=== PATIENT | male | born 1970 | race Caucasian/White ===

== ENCOUNTER 2017-10-14 13:59 | Observation (INO) | payer BC ==
[2017-10-14 14:54] LABS: VBG BASE EXCESS 3.3 (-2.0-2.0); VBG CARBOXYHEMOGLOBIN 10.6 % T HGB (0.0-6.9); VBG HCO3- 28.5 meq/L (22-28); VBG HEMOGLOBIN 16.5; VBG O2 SATURATION 78.5 (95-100); VBG pH 7.42 (7.32-7.42)
--- NOTE | 2017-10-14 14:56 | ERPHSYRPT ---
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 He was lying on his right elbow for a few minutes. He then got up, could not move his right hand. He had no specific injury. He had headache. The weakness and tingling in the right arm and hand persists. No hx of this in the past. It initially felt like it went to sleep but never got better. No chest or back pain. No abd pain. Hand feels locked up. Timing/Duration: today (1PM) Severity: moderate Baseline/Normal Cognition: alert oriented x 3 Current Cognition: alert oriented x 3 Allergies/Adverse Reactions: No Known Drug Allergies Allergy (Verified 10/14/17 14:45) Hx Tetanus, Diphtheria Vaccination/Date Given: No Hx Influenza Vaccination/Date Given: No Hx Pneumococcal Vaccination/Date Given: No Immunizations Up to Date: Yes - Review of Systems Constitutional: No Fever, No Chills Eyes: No Vision Changes Ears, Nose, & Throat: No Symptoms Respiratory: No Symptoms Cardiac: No Chest Pain Abdominal/Gastrointestinal: No Abdominal Pain, No Nausea, No Vomiting, No Diarrhea Musculoskeletal: No Back Pain, No Neck Pain, No Injury Skin: No Rash Neurological: Focal Weakness (right hand), Headache, Parasthesia (right arm) All Other Systems: Reviewed and Negative - Past Medical History Pertinent Past Medical History: No - Past Surgical History Past Surgical History: Yes Neuro Surgical History: No Pertinent History Cardiac: No Pertinent History Respiratory: No Pertinent History Gastrointestinal: No Pertinent History Genitourinary: No Pertinent History Musculoskeletal: Orthopedic Surgery Male Surgical History: No Pertinent History Other Surgical History: knee , arm - Social History Smoking Status: Current every day smoker How long have you smoked: years Exposure to second hand smoke: Yes Drug Use: none Patient Lives Alone: No (works for [employer]) Significant Family History: no pertinent family hx - Nursing Vital Signs Nursing Vital Signs: Initial Vital Signs Pulse Rate 88 10/14/17 14:35 Respiratory Rate 16 10/14/17 14:35 Blood Pressure 146/88 10/14/17 14:35 O2 Sat by Pulse Oximetry 97 10/14/17 14:35 Pain Scale Pain Intensity 0 - Cade Coma Scale Best Eye Response (Cade): (4) open spontaneously Best Verbal Response (Buhl): (5) oriented Best Motor Response (Buhl): (6) obeys commands Cade Total: 15 - Physical Exam General Appearance: alert Eye Exam: bilateral eye: PERRL, EOMI Ears, Nose, Throat Exam: normal ENT inspection, moist mucous membranes Neck Exam: normal inspection, non-tender, supple Respiratory: normal breath sounds, lungs clear Cardiovascular: regular rate/rhythm, No murmur Rectal Exam: deferred Back Exam: normal inspection, No CVA tenderness, No vertebral tenderness Mental Status: alert, oriented x 3, cooperative etl lead Exam: normal hearing, normal speech, PERRL Coordination/Gait: normal gait, normal cerebellar function Motor/Sensory: no pronator drift Skin Exam: warm, dry, No rash SpO2 Interpretation: normal SpO2: 97 Oxygen Delivery: Room Air Comments: Left arm, both legs are strong with normal sensation. Face symmetric. The right hand is held in volar. Skin intact. He reports decreased sensation in stocking glove fashion from the elbow down. He has good strength in the right shoulder girdle and elbow area. He has weakness of right wrist dorsiflexion. - Course Nursing assessment & vital signs reviewed: Yes EKG Interpreted by Me: RATE (90), Sinus Rhythm, NORMAL AXIS, NORMAL QRS, NORMAL ST-T - Radiology Exams cxr X-ray Interpretation: Teleradiologist Report (new mild bibasilar infiltrates vs atelectasis.) - CT Exams head CT Interpretation: Tele-radiologist Report (stable normal CT head. Again partial opacification of mastoid air cells, left greater than right, presumed inflammatory.) Ordered Tests: Active Orders 24 hr Category Date Time Status Head Of [employer] STAT Care 10/14/17 14:44 Active Clean Catch Urine Specimen STAT Care 10/14/17 14:43 Active EKG-ER Only STAT Care 10/14/17 14:43 Active IV Insertion STAT Care 10/14/17 14:43 Active NPO (ED) STAT Care 10/14/17 14:43 Active Oxygen-ED Only NON-REBREATHER 100% Care 10/14/17 14:57 Active Pulse Oximetry (ED) STAT Care 10/14/17 14:43 Active Consult Neurology STAT Cons 10/14/17 14:45 Active CHEST 1 VIEW (PORTABLE) Stat Exams 10/14/17 14:[address] ANGIOGRAPHY NECK [CT] Stat Exams 10/14/17 16:11 Taken CTA HEAD W AND/OR WO CONTRAST [CT] Stat Exams 10/14/17 16:10 Taken HEAD WITHOUT CONTRAST [CT] Stat Exams 10/14/17 14:44 Completed CBC W DIFF Stat Lab 10/14/17 14:52 Completed CMP Stat Lab 10/14/17 14:52 Completed ETHYL ALCOHOL Stat Lab 10/14/17 14:52 Completed MAG [MAGNESIUM] Stat Lab 10/14/17 14:52 Completed PROTIME WITH INR Stat Lab 10/14/17 14:52 Completed PTT Stat Lab 10/14/17 14:52 Completed UA W/RFX UR CULTURE Stat Lab 10/14/17 16:55 Completed Urine Triage Profile Stat Lab 10/14/17 16:55 Completed VENOUS BLOOD GAS Stat Lab 10/14/17 18:12 Ordered VENOUS BLOOD GAS Urgent Lab 10/14/17 14:43 Completed Medication Summary Discontinued Medications Generic Name Dose Route Start Last Admin Trade Name Freq PRN Reason Stop Dose Admin Aspirin 325 mg 10/14/17 18:11 Ecotrin 325 Mg PO 10/14/17 18:12 STAT ONE Famotidine 20 mg 10/14/17 16:18 10/14/17 16:51 Pepcid 20 Mg Vial IV 10/14/17 16:19 20 mg STAT ONE Administration Famotidine Confirm 10/14/17 16:49 Pepcid 20 Mg Vial Administered 10/14/17 16:50 Dose 20 mg IV .STK-MED ONE Lorazepam 1 mg 10/14/17 16:18 10/14/17 16:51 Ativan 2 Mg/1 Ml Vial IV 10/14/17 16:19 1 mg STAT ONE Administration Lorazepam Confirm 10/14/17 16:49 Ativan 2 Mg/1 Ml Vial Administered 10/14/17 16:50 Dose 2 mg .ROUTE .STK-MED ONE Lorazepam 1 mg 10/14/17 18:11 Ativan 2 Mg/1 Ml Vial IV 10/14/17 18:12 STAT ONE Lorazepam 2 mg 10/14/17 18:15 Ativan 2 Mg/1 Ml Vial IV 10/14/17 18:16 STAT ONE Thiamine HCl 100 mg 10/14/17 18:11 Thiamine 200 Mg/2 Ml IM 10/14/17 18:12 STAT ONE Lab/Rad Data: Laboratory Result Diagrams 10/14/17 14:52 10/14/17 14:52 Laboratory Results 10/14/17 10/14/17 10/14/17 Range/Units 16:55 16:55 14:52 WBC (4.0-10.5) K/mm3 RBC (4.1-5.6) M/mm3 Hgb (12.5-18.0) gm/dl Hct (42-50) % MCV (78-100) fl MCH (26-32) pg MCHC (32-36) g/dl RDW (11.5-14.0) % Plt Count (150-450) K/mm3 MPV (6-9.5) fl Gran % (36.0-66.0) % Lymphocytes % (24.0-44.0) % Monocytes % (0.0-12.0) % Eosinophils % (0.00-5.0) % Basophils % (0.0-0.4) % Basophils # (0-0.4) INR (0.8-3.0) APTT (24.1-36.1) SECONDS VBG pH (7.32-7.42) VBG pCO2 at Pat Temp (42-55) mm/Hg VBG pO2 at Pat Temp (25-40) mm/Hg VBG HCO3 (22-28) meq/L VBG O2 Sat (Clover) (95-100) VBG Base Excess (-2.0-2.0) VBG Hemoglobin VBG Carboxyhemoglobin (0.0-6.9) % T HGB POC Potassium (3.5-5.1) Sodium (136-145) mEq/L Potassium (3.5-5.1) mEq/L Chloride (98-107) mEq/L Carbon Dioxide (21-32) mEq/L Anion Gap (5-15) MEQ/L BUN (9-20) mg/dL Creatinine (0.55-1.30) mg/dl Estimated GFR ML/MIN Glucose (70-110) MG/DL Calcium (8.5-10.1) mg/dL Magnesium (1.8-2.4) mg/dL Total Bilirubin (0.2-1.0) mg/dL AST (15-37) U/L ALT (12-78) U/L Alkaline Phosphatase (46-116) U/L Serum Total Protein (6.4-8.2) gm/dL Albumin (3.4-5.0) g/dL Ur Collection Type CCMS Urine Color YELLOW (YELLOW) Urine Appearance CLEAR (CLEAR) Urine pH 6.0 (5-6) Ur Specific [place] 1.015 (1.005-1.025) Urine Protein NEGATIVE (Negative) Urine Ketones NEGATIVE (NEGATIVE) Urine Blood NEGATIVE (0-5) Sulaiman/ul Urine Nitrite NEGATIVE (NEGATIVE) Urine Bilirubin NEGATIVE (NEGATIVE) Urine Urobilinogen NORMAL (0-1) mg/dL Ur Leukocyte Esterase NEGATIVE (NEGATIVE) Urine Culture Reflexed NO (NO) Urine Glucose NEGATIVE (NEGATIVE) mg/dL Urine Opiates Level NEG. (NEGATIVE) Ur Methadone NEG. (NEGATIVE) Urine Barbiturates NEG. (NEGATIVE) Ur Phencyclidine (PCP) NEG. (NEGATIVE) Urine Amphetamine NEG. (NEGATIVE) U Benzodiazepine Level NEG. (NEGATIVE) Urine Cocaine NEG. (NEGATIVE) Urine Marijuana (THC) NEG. (NEGATIVE) Ethyl Alcohol < 0.010 (0.00-0.01) % Specimen Received 10-14-17 1705 10/14/17 10/14/17 10/14/17 Range/Units 14:52 14:52 14:52 WBC (4.0-10.5) K/mm3 RBC (4.1-5.6) M/mm3 Hgb (12.5-18.0) gm/dl Hct (42-50) % MCV (78-100) fl MCH (26-32) pg MCHC (32-36) g/dl RDW (11.5-14.0) % Plt Count (150-450) K/mm3 MPV (6-9.5) fl Gran % (36.0-66.0) % Lymphocytes % (24.0-44.0) % Monocytes % (0.0-12.0) % Eosinophils % (0.00-5.0) % Basophils % (0.0-0.4) % Basophils # (0-0.4) INR 1.02 (0.8-3.0) APTT 30.8 (24.1-36.1) SECONDS VBG pH (7.32-7.42) VBG pCO2 at Pat Temp (42-55) mm/Hg VBG pO2 at Pat Temp (25-40) mm/Hg VBG HCO3 (22-28) meq/L VBG O2 Sat (Clover) (95-100) VBG Base Excess (-2.0-2.0) VBG Hemoglobin VBG Carboxyhemoglobin (0.0-6.9) % T HGB POC Potassium (3.5-5.1) Sodium 139 (136-145) mEq/L Potassium 4.0 (3.5-5.1) mEq/L Chloride 103 (98-107) mEq/L Carbon Dioxide 28.8 (21-32) mEq/L Anion Gap 11.1 (5-15) MEQ/L BUN 15 (9-20) mg/dL Creatinine 1.31 H (0.55-1.30) mg/dl Estimated GFR > 60 ML/MIN Glucose 149 H (70-110) MG/DL Calcium 8.9 (8.5-10.1) mg/dL Magnesium 2.4 (1.8-2.4) mg/dL Total Bilirubin 0.40 (0.2-1.0) mg/dL AST 58 H (15-37) U/L ALT 132 H (12-78) U/L Alkaline Phosphatase 98 (46-116) U/L Serum Total Protein 7.7 (6.4-8.2) gm/dL Albumin 3.9 (3.4-5.0) g/dL Ur Collection Type Urine Color (YELLOW) Urine Appearance (CLEAR) Urine pH (5-6) Ur Specific [place] (1.005-1.025) Urine Protein (Negative) Urine Ketones (NEGATIVE) Urine Blood (0-5) Sulaiman/ul Urine Nitrite (NEGATIVE) Urine Bilirubin (NEGATIVE) Urine Urobilinogen (0-1) mg/dL Ur Leukocyte Esterase (NEGATIVE) Urine Culture Reflexed (NO) Urine Glucose (NEGATIVE) mg/dL Urine Opiates Level (NEGATIVE) Ur Methadone (NEGATIVE) Urine Barbiturates (NEGATIVE) Ur Phencyclidine (PCP) (NEGATIVE) Urine Amphetamine (NEGATIVE) U Benzodiazepine Level (NEGATIVE) Urine Cocaine (NEGATIVE) Urine Marijuana (THC) (NEGATIVE) Ethyl Alcohol (0.00-0.01) % Specimen Received 10/14/17 10/14/17 Range/Units 14:52 14:43 WBC 9.7 (4.0-10.5) K/mm3 RBC 4.38 (4.1-5.6) M/mm3 Hgb 15.8 (12.5-18.0) gm/dl Hct 43.9 (42-50) % MCV 100.2 H (78-100) fl MCH 36.1 H (26-32) pg MCHC 36.0 (32-36) g/dl RDW 12.5 (11.5-14.0) % Plt Count 218 (150-450) K/mm3 MPV 9.5 (6-9.5) fl Gran % 68.3 H (36.0-66.0) % Lymphocytes % 20.7 L (24.0-44.0) % Monocytes % 9.2 (0.0-12.0) % Eosinophils % 1.7 (0.00-5.0) % Basophils % 0.1 (0.0-0.4) % Basophils # 0.01 (0-0.4) INR (0.8-3.0) APTT (24.1-36.1) SECONDS VBG pH 7.42 (7.32-7.42) VBG pCO2 at Pat Temp 44 (42-55) mm/Hg VBG pO2 at Pat Temp 34 (25-40) mm/Hg VBG HCO3 28.5 H (22-28) meq/L VBG O2 Sat (Clover) 78.5 L (95-100) VBG Base Excess 3.3 H (-2.0-2.0) VBG Hemoglobin 16.5 VBG Carboxyhemoglobin 10.6 H* (0.0-6.9) % T HGB POC Potassium 4.0 (3.5-5.1) Sodium (136-145) mEq/L Potassium (3.5-5.1) mEq/L Chloride (98-107) mEq/L Carbon Dioxide (21-32) mEq/L Anion Gap (5-15) MEQ/L BUN (9-20) mg/dL Creatinine (0.55-1.30) mg/dl Estimated GFR ML/MIN Glucose (70-110) MG/DL Calcium (8.5-10.1) mg/dL Magnesium (1.8-2.4) mg/dL Total Bilirubin (0.2-1.0) mg/dL AST (15-37) U/L ALT (12-78) U/L Alkaline Phosphatase (46-116) U/L Serum Total Protein (6.4-8.2) gm/dL Albumin (3.4-5.0) g/dL Ur Collection Type Urine Color (YELLOW) Urine Appearance (CLEAR) Urine pH (5-6) Ur Specific [place] (1.005-1.025) Urine Protein (Negative) Urine Ketones (NEGATIVE) Urine Blood (0-5) Sulaiman/ul Urine Nitrite (NEGATIVE) Urine Bilirubin (NEGATIVE) Urine Urobilinogen (0-1) mg/dL Ur Leukocyte Esterase (NEGATIVE) Urine Culture Reflexed (NO) Urine Glucose (NEGATIVE) mg/dL Urine Opiates Level (NEGATIVE) Ur Methadone (NEGATIVE) Urine Barbiturates (NEGATIVE) Ur Phencyclidine (PCP) (NEGATIVE) Urine Amphetamine (NEGATIVE) U Benzodiazepine Level (NEGATIVE) Urine Cocaine (NEGATIVE) Urine Marijuana (THC) (NEGATIVE) Ethyl Alcohol (0.00-0.01) % Specimen Received - Progress Progress Note: 10/14/17 14:56 Symptom onset 1PM. Exam suggests neuropraxia from the right elbow. However, he has headache and is worried about stroke. Will get stat head CT and [facility] neurology consultation. CO 10.[address] on NRB oxygen. 10/14/17 15:58 He was evaluated by [facility] neurology Dr Espitia. He has some sensory changes in the right face, right arm, and right leg. Most weakness right hand. Dr Espitia advised TPA administration. Dr Espitia discussed risk and benefits to include improvement, better functional outcome, bleeding, , worsening. Pt is hesitant after long discussion regarding TPA. He is a chronic drinker of alcohol. He has had improvement in weakness of right hand although it is still present. He has had improvement in the sensory changes in the face and leg. Dr Espitia advised pt to consider TPA administration. Pt at this point said no. 10/14/17 16:16 Again discussed risk and benefits of TPA for stroke with pt and mother and father in room. He understands risks and benefits. He does not want to take the medication. He declines TPA for stroke. Parents understand as well. 10/14/17 16:19 Pt is left handed. He signed refusal for TPA. Will give ativan for anxiety. He is a heavy drinker of alcohol which might be playing some role as well. 10/14/17 17:51 CTA head/neck: Minimal calcification of origin left subclavian artery. O/W normal CTA neck and CTA nez perce of Ugart[place]. 10/14/17 18:[address] Hannon who will place in tele observation. Pt agrees. Will get MRI, echo, tele. Will give ativan to prevent alcohol withdrawal. He took oxygen off. Will recheck CO. Counseled pt/family regarding: lab results, diagnosis, need for follow-up, rad results, smoking cessation - Departure Time of Disposition: 18:17 Departure Disposition: Observation (Tele Dr Hannon) Clinical Impression: Non-hemorrhagic stroke, Chronic alcohol use, elevated carbon monoxide Condition: Fair Critical Care Time: Yes Critical Care Time(excluding separately billable procedures): 30-74 minutes Referrals: DASHA HANNON [Primary Care Provider] -
[2017-10-14 15:05] LABS: BASOPHIL % 0.1 % (0.0-0.4); Basophil (Absolute #) 0.01 (0-0.4); Eosinophil % 1.7 % (0.00-5.0); Eosinophil (Absolute #) 0.16 (0-0.5); Granulocyte Absolute (ANC) 6.62 (1.4-6.9); Granulocytes % 68.3 % (36.0-66.0); Hematocrit 43.9 % (42-50); Hemoglobin 15.8 gm/dl (12.5-18.0); Lymphocytes % 20.7 % (24.0-44.0); Mean Cell Volume 100.2 fl (78-100); Mean Corpuscular Hemoglobin 36.1 pg (26-32); Mean Platelet Volume 9.5 fl (6-9.5); Monocyte (Absolute #) 0.89 (0.0-1.3); Monocytes % 9.2 % (0.0-12.0); Platelet Count 218 K/mm3 (150-450); Red Blood Count 4.38 M/mm3 (4.1-5.6); Red Cell Distribution Width 12.5 % (11.5-14.0); White Blood Count 9.7 K/mm3 (4.0-10.5)
--- NOTE | 2017-10-14 15:06 | XRAY ---
Indication: Elevated blood pressure. Right hand numbness. Comparison: March 19, 2012. Single AP portable chest demonstrates new mild bibasilar infiltrates versus atelectasis. Remaining heart, lungs, and bony thorax normal.
--- NOTE | 2017-10-14 15:12 | XRAY ---
Indication: Right hand numbness. Multiple contiguous axial images obtained through the head without contrast. Comparison: March 19, 2012. Again normal appearing brain parenchyma, ventricles, and bony calvarium. Visualized paranasal sinuses are clear. There remains near complete opacification of the left mastoid air cells and partial opacification of the right mastoid air cells. Impression: 1. Stable normal CT head without contrast exam. 2. Again partial opacification of the mastoid air cells, left greater the right, presumed inflammatory. CTDI 70.00
[2017-10-14 15:21] LABS: INR 1.02 (0.8-3.0)
[2017-10-14 15:24] LABS: PTT 30.8 SECONDS (24.1-36.1)
[2017-10-14 15:40] LABS: ALBUMIN 3.9 g/dL (3.4-5.0); ALKALINE PHOSPHATASE 98 U/L (46-116); ANION GAP 11.1 MEQ/L (5-15); BLOOD UREA NITROGEN 15 mg/dL (9-20); CHLORIDE 103 mEq/L (98-107); Calcium 8.9 mg/dL (8.5-10.1); Carbon Dioxide 28.8 mEq/L (21-32); Creatinine 1 1.31 mg/dl (0.55-1.30); EST GLOMERULAR FILTRATION RATE > 60 ML/MIN; Glucose 149 MG/DL (70-110); SGOT/AST 58 U/L (15-37); SGPT/ALT 132 U/L (12-78); SODIUM 139 mEq/L (136-145); Total Protein 7.7 gm/dL (6.4-8.2)
[2017-10-14] MEDS ORDERED: Pepcid 20 MG VIAL IV ONE ×2 (16:18→16:49)
[2017-10-14] MEDS ORDERED: Ativan 2 MG/1 ML VIAL IV ONE ×3 (16:18→18:15)
[2017-10-14] MEDS ORDERED: Ativan 2 MG/1 ML VIAL ONE ×2 (16:49→18:18)
[2017-10-14 17:07] LABS: Appearance CLEAR (CLEAR); Bilirubin NEGATIVE (NEGATIVE); Blood NEGATIVE Ery/ul (0-5); Glucose NEGATIVE (NEGATIVE); Ketones NEGATIVE (NEGATIVE); Leukocyte Esterase NEGATIVE (NEGATIVE); Nitrite NEGATIVE (NEGATIVE); Protein,Urine Dip NEGATIVE (Negative); Specific Gravity 1.015 (1.005-1.025); Urobilinogen NORMAL mg/dL (0-1)
[2017-10-14 17:13] LABS: Amphetamine,Urine NEG. (NEGATIVE); Barbiturate,Urine NEG. (NEGATIVE); Benzodiazepine,Urine NEG. (NEGATIVE); Cocaine,Urine NEG. (NEGATIVE); Methadone,Urine NEG. (NEGATIVE); Opiate,Urine NEG. (NEGATIVE); PCP,Urine NEG. (NEGATIVE); THC,Urine NEG. (NEGATIVE)
[2017-10-14] MEDS ORDERED: Ecotrin 325 MG PO ONE (18:11)
[2017-10-14] MEDS ORDERED: THIAMINE 200 MG/2 ML IM ONE (18:11)
[2017-10-14] MEDS ORDERED: THIAMINE 200 MG/2 ML ONE (18:18)
[2017-10-14 18:30] LABS: VBG O2 SATURATION 81.6 (95-100); VBG POTASSIUM 4.5 (3.5-5.1); VBG pH 7.36 (7.32-7.42)
[2017-10-14] MEDS ORDERED: MAALOX ES 30 ML UNIT DOSE PO PRN (20:27)
[2017-10-14] MEDS ORDERED: TYLENOL 325 MG PO PRN (20:27)
[2017-10-14] MEDS ORDERED: Zofran 4 MG/2 ML VIAL IV PRN (20:27)
[2017-10-14] MEDS ORDERED: Senokot-S Tablet PO PRN (20:27)
[2017-10-14] MEDS ORDERED: MILK OF MAGNESIA 30 ML PO PRN (20:27)
[2017-10-14] MEDS ORDERED: Ativan 2 MG/1 ML VIAL IV PRN (21:30)
[2017-10-14] MEDS ORDERED: Sodium Chloride 0.9% 1000 ML 1,000 ML IV SCH (21:45)
[2017-10-14] MEDS ORDERED: ZOCOR 20MG PO SCH (22:00)
[2017-10-14] MEDS: Pepcid 20 MG PO SCH (22:29)
[2017-10-14 23:03] LABS: VBG BASE EXCESS 2.9 (-2.0-2.0); VBG CARBOXYHEMOGLOBIN 4.3 % T HGB (0.0-6.9); VBG HCO3- 27.9 meq/L (22-28); VBG HEMOGLOBIN 15.7; VBG O2 SATURATION 96.2 (95-100); VBG POTASSIUM 3.4 (3.5-5.1); VBG pH 7.42 (7.32-7.42)
[2017-10-15 06:33] LABS: Risk Ratio 5.5
[2017-10-15] MEDS ORDERED: TRANDATE 20 MG/5 ML SYRINGE IV PRN (07:19)
[2017-10-15] MEDS ORDERED: PROVENTIL COMMON CANISTER IH PRN (08:33)
--- NOTE | 2017-10-15 08:42 | XRAY ---
Indication: Headache and right arm numbness. Conventional contrast enhanced CTA head was performed using 80 cc Isovue 370 contrast. 2-dimensional sagittal and coronal reformatted images obtained. Additional 3-dimensional reformatted images obtained using a separate workstation. Comparison: None Distal internal carotid arteries are bilaterally symmetric without critical stenosis, obstruction, or AV malformation. Normal carotid terminus with normal branching A1 and M1 segments bilaterally. Visualized distal anterior and middle cerebral arteries are normal in CTA appearance. Anterior communicating and posterior communicating arteries not seen probably too small for resolution of exam. Examination of the posterior circulation demonstrates bilaterally patent distal vertebral arteries with the right slightly larger in size. Normal CTA appearance the basilar artery and tip with normal branching posterior cerebral and anterior inferior cerebellar arteries. Remaining whole brain is negative for abnormal enhancing intra-or extra-axial mass. Venous drainage unremarkable. Impression: Negative CTA [place] of [place]. CT DI 70.00
--- NOTE | 2017-10-15 08:43 | XRAY ---
Indication: Headache and right arm numbness. Conventional contrast enhanced CTA neck was performed using 80 cc Isovue 370 contrast. 2-dimensional sagittal and coronal reformatted images obtained. Additional 3-dimensional reformatted images obtained using a separate workstation. Comparison: None Visualized aortic arch is normal with normal branching right radiocephalic, left common carotid, and left subclavian arteries. Very minimal eccentric calcified plaquing seen at the origin of the left subclavian artery. No critical stenosis or obstruction. The left and right common carotid, carotid bulb, internal carotid, and external carotid arteries are normal in course and caliber without critical stenosis, obstruction, or AV malformation. Vertebral arteries are also normal in CTA appearance with the right slightly larger in size. Jugular veins are bilaterally unremarkable. Visualized noncontrasted soft tissues demonstrates scattered small centimeter/subcentimeter cervical lymph nodes bilaterally. Parotid and submandibular glands are bilaterally symmetric. Thyroid gland enhances homogeneously. Supra and infraglottic airway are widely patent. Visualized osseous structures including cervical spine unremarkable. Lung apices are clear. CT head and CTA head reported separately. Impression: Minimal calcified plaquing at the origin of the left subclavian artery. Remaining CTA neck is normal. CT DI 70.00
[2017-10-15] MEDS ORDERED: Augmentin 875-125 Tablet PO SCH (08:45)
[2017-10-15] MEDS ORDERED: Sodium Chloride 0.9% 10 ML FLUSH Syringe IV PRN (08:52)
[2017-10-15] MEDS: Pepcid 20 MG PO SCH (09:15)
[2017-10-15] MEDS ORDERED: ENOXAPARIN SODIUM SQ SCH (10:00)
[2017-10-15] MEDS ORDERED: VITAMIN B-1 100 MG PO SCH (10:00)
[2017-10-15] MEDS ORDERED: Ecotrin 325 MG PO SCH (10:00)
[2017-10-15] MEDS ORDERED: THERAGRAN MULTIVITAMIN PO SCH (10:00)
--- NOTE | 2017-10-15 10:01 | HP ---
HISTORY OF PRESENT ILLNESS: This is a 47 year-old who presented to the emergency department after experiencing some right arm and hand weakness and numbness. 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 He reports at first he was unable to even to take his hand out of claw-like position. He reports this happened at 1300 hours yesterday. He denied any weakness in his right leg. He reports that his strength is back but he still has some numb feeling on top of his right hand and top of his forearm. 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 He reports that he did have a headache yesterday that seemed to start after his arm problem. He reports he had some headaches on and off from sinus problems. 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 He reports there is carbon monoxide inside the scrubber. He reports that his headache is a little bit better. He denies any vision problems. He denies feeling jittery today. He does have a significant alcohol history as well and also he smokes cigarettes. REVIEW OF SYSTEMS: He denies any chest pain. He reports he has had some sinus pressure and a fever last weekend along with a cough that is worse at night. His fever was unmeasured. He denies abdominal pain. No nausea or vomiting. He reports increased urination and diarrhea this past weekend which was through Saturday he reported. PAST MEDICAL HISTORY: Sinus problems. PAST SURGICAL HISTORY: He reports having surgery on a knee and arm. MEDICATIONS: None. ALLERGIES: NKDA. SOCIAL HISTORY: History of alcohol abuse. FAMILY HISTORY: His girlfriend lives at home with him. He reports smoking one pack per day of cigarettes and wanting to try to quit. He reports drinking four to five drinks per day on most days of the week and his mother who is at the bedside reports he often binge-drinks as well. He denies any history of alcohol withdrawal. They report he was at [facility] two months ago and received a medication to help with withdrawal, Antabuse. PHYSICAL EXAMINATION: VITAL SIGNS: Temperature current 98.1F, temperature max 98.8F, heart rate 77 to 93, respiratory rate 16 to 20, blood pressure 108 to 138 over 66 to 85, weight 82.5 kg. Oxygen saturation 92 to 99%. GENERAL: The patient is lying in bed a cooperative pleasant man in no acute distress. His mother is at the bedside. NEURO: Cranial nerves II-XII are intact. Strength is 5/5 in all four extremities. On finger to nose he has a little bit of tremor. Normal heel to cruz. The tremors bilateral on the finger to nose. He can feel me touch his right hand but states that it feels different and the same with his right forearm. CVS: His heart has a regular rate and rhythm. No murmurs, gallops or rubs are appreciated. CHEST: Clear to auscultation at the bases. He has wheezes at the upper lung ferguson bilaterally and a cough with deep breath. ABDOMEN: Soft, nontender, nondistended with normal bowel sounds. EXTREMITIES: No clubbing, cyanosis or edema. SKIN: Warm, dry and intact. LABORATORY DATA AND TESTS: CBC was within normal limits on admission. CMP with AST 58, ALT 132. LDL 128. UA negative. Urine tox was negative. Ethanol alcohol level less than 0.010. Magnesium was normal. On admission his carboxyhemoglobin was 10.6 at 1443, repeat 9.0 at 1825 and 4.3 at 2302. He had head CT that was read as normal CT without contrast exam with partial opacification of the mastoid air cells, left greater than right. Chest x-ray was read as new mild bibasilar infiltrates versus atelectasis. Please see the radiologist dictation for both. Emergency room doctor reported he also had a CT angiogram but I do not have the report from the radiologist on that. The emergency room doctor gave a verbal report that this was read as normal. EKG normal sinus rhythm with no ST-T wave changes, heart rate 77 from this morning. ASSESSMENT AND PLAN: 1) NONHEMORRHAGIC STROKE: He had a cardiac echo today. He has been on telemetry without any events. MRI is ordered for today. He has been started on statin as well as aspirin. I will plan for him to follow up as an outpatient with neurologist. I recommended that the patient be off work the rest of the week. 2) CARBON MONOXIDE POISOINING: It may be related to his work environment. The patient was encouraged to wear any mask provided at work and to let his supervisors know about the high CO2 level. 3) TOBACCO ABUSE: The patient was counseled that he should quit smoking as it puts him at higher risk for further stroke. He is to think about if wants a medication prescribed for this. 4) ALCOHOL ABUSE: The patient was also counseled that he should quit using alcohol and also to write scripts for Antabuse and Librium. 5) SINUSITIS: Will start him on Augmentin twice a day for ten days. 6) WHEEZING: He probably has some underlying chronic obstructive pulmonary disease from his tobacco abuse. He was started on Albuterol inhaler 2 puffs every four hours as needed and ask respiratory therapy to see him. 7) DEEP VENOUS THROMBOSIS PROPHYLAXIS: He is on Lovenox 40 mg subcutaneously daily.
[2017-10-15 11:44] VITALS: BP 133/83; PULSE 78; O2SAT 95
--- NOTE | 2017-10-15 12:46 | XRAY ---
Indication: Right arm numbness. Possible stroke. Carbon monoxide poisoning. Sagittal, coronal, and axial MRI brain was performed without contrast using T1, T2, FLAIR, diffusion, and ADC sequences. Comparison: None Ventriculosulcal pattern appears symmetric. There are several small T2 signal intensities in the periventricular white matter bilaterally favoring degenerative micro-ischemia. No acute intracranial hemorrhage, abnormal extra-axial fluid collection, or mass effect. Diffusion images are negative for restricted signal. Basal ganglia unremarkable. Fourth ventricle is midline without hydrocephalus. 7/8 cranial nerve complex bilaterally symmetric. Normal flow void signal within the major intracerebral circulation. Normal-appearing craniocervical junction and sella turcica. Mild mucosal thickening of both ethmoid sinuses. There is fluid signal in both mastoid air cells, left greater than right. Impression: 1. Mild periventricular degenerative micro-ischemia. 2. No acute intracranial abnormalities or MRI features for carbon monoxide poisoning. 2. Incidental paranasal sinus disease and fluid signal in both mastoid air cells presumed inflammatory.
--- NOTE | 2017-10-15 13:04 | PCM.DCORD ---
- Discharge Discharge Date: 10/15/17 Disposition: Home, Self-Care Condition: Fair Prescriptions: New Albuterol Sulfate [Albuterol Sulfate Hfa] 2 puffs IH Q4H PRN #1 [id number] PRN Reason: Shortness Of Breath/Wheezing Disulfiram [Antabuse] 500 mg PO DAILY #10 tablet Atorvastatin Calcium 20 mg PO DAILY #30 tablet Amox Tr/Potass Clav. 875 mg [Augmentin 875-125 Tablet] 875 mg PO Q12H # 19 tablet Multivitamin [Daily Multiple Vitamin] 1 each PO DAILY #30 tablet Aspirin EC 325 mg [Ecotrin 325 MG] 325 mg PO DAILY #30 tablet.ec Chlordiazepoxide HCl 10 mg [Librium 10 MG] 10 mg PO TID PRN #30 capsule PRN Reason: Anxiety Bupropion HCl 150 mg Sr [Wellbutrin SR 150 MG] 150 mg PO UD #60 tablet.sa Instructions: Paresthesias (DC), Hand Numbness, Stroke Follow up with: [facility] [NON-STAFF PHY W/O PRIVILEGES] - 10/30/17 2:30 pm DASHA HANNON [Primary Care Provider] - 10/22/17 9:30 am Forms: Discharge Instructions, Patient Portal Information
[2017-10-15] MEDS ORDERED: Sodium Chloride 0.9% 10 ML FLUSH Syringe IV SCH (14:00)
--- NOTE | 2017-10-16 15:57 | ECHO ---
DATE OF PROCEDURE: 10/15/2017 CLINICAL INFORMATION: Carbon monoxide poisoning and possible stroke. The echocardiogram is technically difficult. The M-mode 2D, and Doppler echocardiogram including color flow Doppler shows some aneurysmal appearance to the interatrial septum. There is normal contractility of the left ventricle. The ejection fraction is calculated to be 70%. The left ventricle is normal in size with a dimension of 4.4 cm. There is no evidence of apical thrombus. The septal wall thickness is normal at 1.0 cm. The left ventricular posterior wall is borderline hypertrophied at 1.2 cm. The right ventricle is normal in size and function. The left atrium is borderline dilated with a dimension of 4.1 cm. The right atrium is mildly dilated. There is mild aortic regurgitation present. The mitral valve is unremarkable. There is mild tricuspid regurgitation. The pulmonic valve is not well visualized. The aortic root is 3.4 cm which is normal. There is no pericardial effusion. IMPRESSION: 1) NORMAL CONTRACTILITY OF THE LEFT VENTRICLE. NO EVIDENCE OF THROMBUS PRESENT. 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 2) THERE IS BORDERLINE HYPERTROPHY OF LEFT VENTRICLE POSTERIOR WALL. 3) THERE IS MILD TRICUSPID REGURGITATION. 4) THERE IS MILD AORTIC REGURGITATION. 5) THERE IS TRICUSPID VALVULAR CALCIFICATION. 6) THE ECHOCARDIOGRAM WAS TECHMICALLY DIFFICULT DUE TO LUNG INTERFERENCE.
== END 2017-10-15 13:52 | disposition home or self-care (01) ==
LOC: ED 13:59 → MED SURG 20:00
PROVIDERS: ADMIT Internal Medicine; ATTEND Internal Medicine
DX: I63.9 Cerebral infarction, unspecified (principal); T58.8X1A Toxic effect of carbon monoxide from other source, accidental (unintentional), initial encounter; Y92.69 Other specified industrial and construction area as the place of occurrence of the external cause; Z72.0 Tobacco use; F10.10 Alcohol abuse, uncomplicated; J32.9 Chronic sinusitis, unspecified; R06.2 Wheezing
CPT/HCPCS: 36000; 36415; 70450; 70496; 70498; 70551; 71045; 80053; 80061; 80307; 81002; 82805; 82962; 83036; 83721; 83735; 84484; 85025; 85610; 85730; 93005; 93041; 93268; 93306; 96372; 96374; 96375; 96376; 99291; G0378; G0481; J1650; J2060; Q3014; A9270-GY

== ENCOUNTER 2020-08-11 21:50 | Emergency (ER) | payer SELFPAY ==
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
[2020-08-11] MEDS ORDERED: Zithromax 250 MG TABLET PO ONE (22:39)
[2020-08-11] MEDS ORDERED: Zithromax 250 MG TABLET ONE (22:46)
[2020-08-11 22:50] VITALS: BP 121/84; PULSE 92; O2SAT 99
== END 2020-08-11 23:02 | disposition home or self-care (01) ==
LOC: ED 21:50
DX: Z02.89 Encounter for other administrative examinations (principal); J02.9 Acute pharyngitis, unspecified; J32.9 Chronic sinusitis, unspecified
CPT/HCPCS: 99283; U0003; A9270-GY

== ENCOUNTER 2020-10-28 23:11 | Emergency (ER) | payer SELFPAY ==
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
[2020-10-29 00:10] LABS: Amphetamine,Urine NEGATIVE (NEGATIVE); Barbiturate,Urine NEGATIVE (NEGATIVE); Benzodiazepine,Urine NEGATIVE (NEGATIVE); Cocaine,Urine NEGATIVE (NEGATIVE); Methadone,Urine NEGATIVE (NEGATIVE); Opiate,Urine NEGATIVE (NEGATIVE); PCP,Urine NEGATIVE (NEGATIVE); THC,Urine NEGATIVE (NEGATIVE)
[2020-10-29 02:15] VITALS: BP 120/66; PULSE 81; O2SAT 99
--- NOTE | 2020-10-29 07:36 | XRAY ---
Indication: Pain following fall. Comparison: None 3 view left shoulder demonstrates comminuted clavicle shaft fracture with bayonet apposition/alignment. No other bony, articular, or soft tissue abnormalities.
== END 2020-10-29 03:00 ==
LOC: ED 23:11
DX: Z02.89 Encounter for other administrative examinations (principal); M25.512 Pain in left shoulder; S42.002A Fracture of unspecified part of left clavicle, initial encounter for closed fracture; W18.30XS Fall on same level, unspecified, sequela; F10.10 Alcohol abuse, uncomplicated; F17.210 Nicotine dependence, cigarettes, uncomplicated
CPT/HCPCS: 36415; 73030; 80307; 99284; G0480

== ENCOUNTER 2022-03-13 11:35 | Emergency (ER) | payer OTHER ==
[2022-03-13] MEDS ORDERED: Sodium Chloride 0.9% 1000 ML 1,000 ML IV STA (11:50)
[2022-03-13] MEDS ORDERED: SUBLIMAZE 100 MCG/2 ML IV ONE (11:50)
[2022-03-13] MEDS ORDERED: solu-MEDROL IV ONE (11:53)
[2022-03-13] MEDS ORDERED: SUBLIMAZE 100 MCG/2 ML ONE (12:00)
[2022-03-13] MEDS ORDERED: solu-MEDROL ONE (12:01)
[2022-03-13] MEDS ORDERED: Sodium Chloride 0.9% 1000 ML 1,000 ML ONE (12:01)
--- NOTE | 2022-03-13 12:01 | ERPHSYRPT ---
- History of Present Illness Time Seen by Provider: 03/13/22 11:57 Source: patient Exam Limitations: no limitations Patient Subjective Stated Complaint: pt here for sore throat for 2 days now with a fever, states hard to eat and drink Triage Nursing Assessment: pt alert, resp easy, skin w/d/p, no drooling, no edema noted Physician History: Patient is a 51-year-old white male presents with a 2-day history of severe sore throat. He started with some swelling in his nodes and he complains of great difficulty swallowing he is in fact expectorating his saliva. He also complains of a severe headache multiple episodes of vomiting last vomiting last p.m. he has had chills and night sweats he had been [place] Patient also complains of some anterior chest pain wall tenderness has been present for a month Timing/Duration: day(s) (2) Severity: severe Modifying Factors: Improves With: nothing Associated Symptoms: nausea, vomiting, diaphoresis, chills Allergies/Adverse Reactions: No Known Drug Allergies Allergy (Verified 03/13/22 11:42) Home Medications: No Reportable Medications [No Reported Medications] 08/11/20 [History] Hx Tetanus, Diphtheria Vaccination/Date Given: No Hx Influenza Vaccination/Date Given: No Hx Pneumococcal Vaccination/Date Given: No Immunizations Up to Date: Yes Travel Risk - International Travel Have you traveled outside of the country in past 3 weeks: No - Coronavirus Screening Are you exhibiting any of the following symptoms?: Yes Symptoms: Fever Close contact with a COVID-19 positive Pt in past 14-21 Days: No - Vaccine Status Have you recieved a Covid-19 vaccination: No - Review of Systems Constitutional: No Fever, No Chills Eyes: No Symptoms Ears, Nose, & Throat: No Symptoms Respiratory: No Cough, No Dyspnea Cardiac: No Chest Pain, No Edema, No Syncope Abdominal/Gastrointestinal: No Abdominal Pain, No Nausea, No Vomiting, No Diarrhea Genitourinary Symptoms: No Dysuria Musculoskeletal: No Back Pain, No Neck Pain Skin: No Rash Neurological: No Dizziness, No Focal Weakness, No Sensory Changes Psychological: No Symptoms Endocrine: No Symptoms All Other Systems: Reviewed and Negative - Past Medical History Pertinent Past Medical History: No Neurological History: No Pertinent History ENT History: No Pertinent History Cardiac History: No Pertinent History Respiratory History: No Pertinent History Endocrine Medical History: No Pertinent History Musculoskeletal History: No Pertinent History GI Medical History: No Pertinent History History: No Pertinent History Psycho-Social History: No Pertinent History Male Reproductive Disorders: No Pertinent History - Past Surgical History Past Surgical History: Yes Neuro Surgical History: No Pertinent History Cardiac: No Pertinent History Respiratory: No Pertinent History Gastrointestinal: No Pertinent History Genitourinary: No Pertinent History Musculoskeletal: Orthopedic Surgery Male Surgical History: No Pertinent History Other Surgical History: knee , arm back - Social History Smoking Status: Current every day smoker How long have you smoked: 20 years Exposure to second hand smoke: Yes Drug Use: none Patient Lives Alone: No Significant Family History: no pertinent family hx - Nursing Vital Signs Nursing Vital Signs: Initial Vital Signs Temperature 97.9 F 03/13/22 11:44 Pulse Rate 112 H 03/13/22 11:44 Respiratory Rate 18 03/13/22 11:44 Blood Pressure 149/104 03/13/22 11:44 O2 Sat by Pulse Oximetry 99 03/13/22 11:44 Pain Scale Pain Intensity 5 - Physical Exam General Appearance: moderate distress, alert Eye Exam: PERRL/EOMI, eyes nml inspection Ears, Nose, Throat Exam: TMs normal, pharyngeal erythema, other (Marked edema of the uvula and fullness of the right tonsillar area) Neck Exam: normal inspection, non-tender, supple, full range of motion Respiratory Exam: normal breath sounds, lungs clear, No respiratory distress Cardiovascular Exam: regular rate/rhythm, normal heart sounds, normal peripheral pulses Gastrointestinal/Abdomen Exam: soft, normal bowel sounds, No tenderness, No mass Back Exam: normal inspection, normal range of motion, No CVA tenderness, No vertebral tenderness Extremity Exam: normal inspection, normal range of motion, pelvis stable Neurologic Exam: alert, oriented x 3, cooperative, normal mood/affect, nml cerebellar function, nml station & gait, sensation nml, No motor deficits Skin Exam: normal color, warm, dry, No rash Lymphatic Exam: No adenopathy SpO2: 99 - Course Nursing assessment & vital signs reviewed: Yes EKG Interpreted by Me: RATE (99), Sinus Rhythm, NORMAL AXIS, NORMAL INTERVALS, NORMAL QRS, NORMAL ST-T - Radiology Exams Chest X-ray Interpretation: Negative - CT Exams Soft Tissue Neck CT Interpretation: Other (Impression on the soft tissue of the neck shows a new large right oropharynx/parapharyngeal space soft tissue mass as detailed worrisome for malignancy cervical adenopathy probably metastatic) Ordered Tests: Active Orders 24 hr Category Date Time Status EKG-ER Only STAT Care 03/13/22 12:52 Active IV Insertion STAT Care 03/13/22 11:50 Active CHEST 1 VIEW (PORTABLE) Stat Exams 03/13/22 11:51 Completed NECK WO CONTRAST [CT] Stat Exams 03/13/22 11:49 Completed BLOOD CULTURE Stat Lab 03/13/22 12:00 Received CBC W DIFF Stat Lab 03/13/22 11:45 Completed CMP Stat Lab 03/13/22 11:45 Completed Lactic Acid Stat Lab 03/13/22 12:02 Completed [place] Screen Stat Lab 03/13/22 11:45 Completed TROPONIN Q3H Lab 03/13/22 13:00 Completed TROPONIN Q3H Lab 03/13/22 16:00 Ordered TROPONIN Q3H Lab 03/13/22 19:00 Ordered TROPONIN Q3H Lab 03/13/22 22:00 Ordered UA W/RFX CULTURE Stat Lab 03/13/22 14:04 Results Medication Summary Discontinued Medications Generic Name Dose Route Start Last Admin Trade Name Flakoq PRN Reason Stop Dose Admin Fentanyl Citrate 50 mcg 03/13/22 11:50 03/13/22 12:04 Fentanyl Citrate 100 Mcg/2 Ml* Vial IV 03/13/22 11:51 50 mcg STAT ONE Administration Fentanyl Citrate Confirm 03/13/22 12:00 Fentanyl Citrate 100 Mcg/2 Ml* Vial Administered 03/13/22 12:01 Dose 100 mcg .ROUTE .STK-MED ONE Hydromorphone HCl 1 mg 03/13/22 12:54 03/13/22 12:56 Hydromorphone 1 Mg/1ml Inj 1 Mg/Ml Syringe IV 03/13/22 12:55 1 mg STAT ONE Administration Hydromorphone HCl Confirm 03/13/22 12:55 Hydromorphone 1 Mg/1ml Inj 1 Mg/Ml Syringe Administered 03/13/22 12:56 Dose 1 mg .ROUTE .STK-MED ONE Sodium Chloride 1,000 mls @ 999 mls/hr 03/13/22 11:50 03/13/22 13:05 Sodium Chloride 0.9% 1000 Ml IV 03/13/22 12:50 Infused .Q1H1M STA Infusion Sodium Chloride Confirm 03/13/22 12:01 Sodium Chloride 0.9% 1000 Ml Administered 03/13/22 12:02 Dose 1,000 mls @ ud .ROUTE .STK-MED ONE Methylprednisolone Sodium Succinate 125 mg 03/13/22 11:53 03/13/22 12:05 Methylprednis Sod Succ 125 Mg/2 Ml Vial IV 03/13/22 11:54 125 mg ONCE ONE Administration Methylprednisolone Sodium Succinate Confirm 03/13/22 12:01 Methylprednis Sod Succ 125 Mg/2 Ml Vial Administered 03/13/22 12:02 Dose 125 mg .ROUTE .[facility] ONE Lab/Rad Data: Laboratory Result Diagrams 03/13/22 11:45 03/13/22 11:45 Laboratory Results 03/13/22 03/13/22 03/13/22 Range/Units 14:04 13:00 12:02 WBC (4.0-10.5) x10^3/uL RBC (4.1-5.6) x10^6/uL Hgb (12.5-18.0) g/dL Hct (42-50) % MCV (78-100) fL MCH (26-32) pg MCHC (32-36) g/dL RDW (11.5-14.0) % Plt Count (150-450) x10^3/uL MPV (7.5-11.0) fL Gran % (36.0-66.0) % Immature Gran % (Auto) (0.00-0.4) % Nucleat RBC Rel Count (0.00-0.1) % Eos # (Auto) (0-0.5) x10^3/uL Immature Gran # (Auto) (0.00-0.03) x10^3u/L Absolute Lymphs (auto) (1.0-4.6) x10^3/uL Absolute Monos (auto) (0.0-1.3) x10^3/uL Absolute Nucleated RBC (0.00-0.01) x10^3u/L Lymphocytes % (24.0-44.0) % Monocytes % (0.0-12.0) % Eosinophils % (0.00-5.0) % Basophils % (0.0-0.4) % Absolute Granulocytes (1.4-6.9) x10^3/uL Basophils # (0-0.4) x10^3/uL Sodium (137-145) mmol/L Potassium (3.5-5.1) mmol/L Chloride (98-107) mmol/L Carbon Dioxide (22-30) mmol/L Anion Gap (5-15) MEQ/L BUN (9-20) mg/dL Creatinine (0.66-1.25) mg/dL Estimated GFR ML/MIN Glucose (74-106) mg/dL Lactic Acid 1.2 (0.4-2.0) Calcium (8.4-10.2) mg/dL Total Bilirubin (0.2-1.3) mg/dL AST (17-59) U/L ALT (0-50) U/L Alkaline Phosphatase (38-126) U/L Troponin I < 0.012 (0.000-0.034) ng/mL Serum Total Protein (6.3-8.2) g/dL Albumin (3.5-5.0) g/dL Urinalys Dipstick Clnc Pending Urine Color YELLOW (YELLOW) Urine Appearance CLEAR (CLEAR) Urine pH 7.0 (5-6) Ur Specific [place] 1.010 (1.005-1.025) POC Urine Protein Conf NEGATIVE (Negative) Urine Ketones SMALL-15 (NEGATIVE) Urine Nitrite NEGATIVE (NEGATIVE) Urine Bilirubin NEGATIVE (NEGATIVE) Urine Urobilinogen 1 (0-1) mg/dL Urine Leukocytes NEGATIVE (NEGATIVE) Urine WBC (Auto) NONE (0-5) /HPF Urine RBC (Auto) 0-2 (0-2) /HPF Urine RBC NEGATIVE (0-5) Sulaimna/ul Urine Mucus (Auto) SLIGHT (NEGATIVE) /HPF Ur Culture Indicated? NO Urine Glucose NEGATIVE (NEGATIVE) mg/dL Monoscreen (Negative) Influenza Type A Ag (NEGATIVE) Influenza Type B Ag (NEGATIVE) RSV (PCR) (Negative) SARS-CoV-2 (PCR) (NEGATIVE) Group A Strep Antibody (NEGATIVE) 03/13/22 03/13/22 03/13/22 Range/Units 11:45 11:45 11:45 WBC (4.0-10.5) x10^3/uL RBC (4.1-5.6) x10^6/uL Hgb (12.5-18.0) g/dL Hct (42-50) % MCV (78-100) fL MCH (26-32) pg MCHC (32-36) g/dL RDW (11.5-14.0) % Plt Count (150-450) x10^3/uL MPV (7.5-11.0) fL Gran % (36.0-66.0) % Immature Gran % (Auto) (0.00-0.4) % Nucleat RBC Rel Count (0.00-0.1) % Eos # (Auto) (0-0.5) x10^3/uL Immature Gran # (Auto) (0.00-0.03) x10^3u/L Absolute Lymphs (auto) (1.0-4.6) x10^3/uL Absolute Monos (auto) (0.0-1.3) x10^3/uL Absolute Nucleated RBC (0.00-0.01) x10^3u/L Lymphocytes % (24.0-44.0) % Monocytes % (0.0-12.0) % Eosinophils % (0.00-5.0) % Basophils % (0.0-0.4) % Absolute Granulocytes (1.4-6.9) x10^3/uL Basophils # (0-0.4) x10^3/uL Sodium 133 L (137-145) mmol/L Potassium 4.5 (3.5-5.1) mmol/L Chloride 95 L (98-107) mmol/L Carbon Dioxide 27 (22-30) mmol/L Anion Gap 15.3 H (5-15) MEQ/L BUN 6 L (9-20) mg/dL Creatinine 0.80 (0.66-1.25) mg/dL Estimated GFR > 60.0 ML/MIN Glucose 117 H (74-106) mg/dL Lactic Acid (0.4-2.0) Calcium 9.1 (8.4-10.2) mg/dL Total Bilirubin 1.20 (0.2-1.3) mg/dL AST 109 H (17-59) U/L ALT 110 H (0-50) U/L Alkaline Phosphatase 81 (38-126) U/L Troponin I (0.000-0.034) ng/mL Serum Total Protein 7.9 (6.3-8.2) g/dL Albumin 4.5 (3.5-5.0) g/dL Urinalys Dipstick Clnc Urine Color (YELLOW) Urine Appearance (CLEAR) Urine pH (5-6) Ur Specific [place] (1.005-1.025) POC Urine Protein Conf (Negative) Urine Ketones (NEGATIVE) Urine Nitrite (NEGATIVE) Urine Bilirubin (NEGATIVE) Urine Urobilinogen (0-1) mg/dL Urine Leukocytes (NEGATIVE) Urine WBC (Auto) (0-5) /HPF Urine RBC (Auto) (0-2) /HPF Urine RBC (0-5) Sulaiman/ul Urine Mucus (Auto) (NEGATIVE) /HPF Ur Culture Indicated? Urine Glucose (NEGATIVE) mg/dL Monoscreen NEGATIVE (Negative) Influenza Type A Ag NEGATIVE (NEGATIVE) Influenza Type B Ag NEGATIVE (NEGATIVE) RSV (PCR) NEGATIVE (Negative) SARS-CoV-2 (PCR) NEGATIVE (NEGATIVE) Group A Strep Antibody NOT DETECTED (NEGATIVE) 03/13/22 Range/Units 11:45 WBC 8.0 (4.0-10.5) x10^3/uL RBC 4.42 (4.1-5.6) x10^6/uL Hgb 16.2 (12.5-18.0) g/dL Hct 44.4 (42-50) % MCV 100.5 H (78-100) fL MCH 36.7 H (26-32) pg MCHC 36.5 H (32-36) g/dL RDW 12.4 (11.5-14.0) % Plt Count 129 L (150-450) x10^3/uL MPV 9.7 (7.5-11.0) fL Gran % 76.6 H (36.0-66.0) % Immature Gran % (Auto) 0.4 (0.00-0.4) % Nucleat RBC Rel Count 0.0 (0.00-0.1) % Eos # (Auto) 0.08 (0-0.5) x10^3/uL Immature Gran # (Auto) 0.03 (0.00-0.03) x10^3u/L Absolute Lymphs (auto) 0.98 L (1.0-4.6) x10^3/uL Absolute Monos (auto) 0.75 (0.0-1.3) x10^3/uL Absolute Nucleated RBC 0.00 (0.00-0.01) x10^3u/L Lymphocytes % 12.2 L (24.0-44.0) % Monocytes % 9.4 (0.0-12.0) % Eosinophils % 1.0 (0.00-5.0) % Basophils % 0.4 (0.0-0.4) % Absolute Granulocytes 6.14 (1.4-6.9) x10^3/uL Basophils # 0.03 (0-0.4) x10^3/uL Sodium (137-145) mmol/L Potassium (3.5-5.1) mmol/L Chloride (98-107) mmol/L Carbon Dioxide (22-30) mmol/L Anion Gap (5-15) MEQ/L BUN (9-20) mg/dL Creatinine (0.66-1.25) mg/dL Estimated GFR ML/MIN Glucose (74-106) mg/dL Lactic Acid (0.4-2.0) Calcium (8.4-10.2) mg/dL Total Bilirubin (0.2-1.3) mg/dL AST (17-59) U/L ALT (0-50) U/L Alkaline Phosphatase (38-126) U/L Troponin I (0.000-0.034) ng/mL Serum Total Protein (6.3-8.2) g/dL Albumin (3.5-5.0) g/dL Urinalys Dipstick Clnc Urine Color (YELLOW) Urine Appearance (CLEAR) Urine pH (5-6) Ur Specific [place] (1.005-1.025) POC Urine Protein Conf (Negative) Urine Ketones (NEGATIVE) Urine Nitrite (NEGATIVE) Urine Bilirubin (NEGATIVE) Urine Urobilinogen (0-1) mg/dL Urine Leukocytes (NEGATIVE) Urine WBC (Auto) (0-5) /HPF Urine RBC (Auto) (0-2) /HPF Urine RBC (0-5) Sulaiman/ul Urine Mucus (Auto) (NEGATIVE) /HPF Ur Culture Indicated? Urine Glucose (NEGATIVE) mg/dL Monoscreen (Negative) Influenza Type A Ag (NEGATIVE) Influenza Type B Ag (NEGATIVE) RSV (PCR) (Negative) SARS-CoV-2 (PCR) (NEGATIVE) Group A Strep Antibody (NEGATIVE) - Progress Progress: unchanged Progress Note: 03/13/22 14:39 After several hospitals were contacted to try to except the patient in transfer while we were working to find him a place of appropriate level of care he decided he would sign out AMA even though he was told that his decision could cost him his life and certainly would delay any definitive treatment. - Departure Departure Disposition: AMA Clinical Impression: Oropharyngeal mass Condition: Serious Critical Care Time: No Referrals: DASHA HANNON [Primary Care Provider] - Follow up/PCP as directed
[2022-03-13 12:27] LABS: Absolute Neutrophil Ct (ANC) 6.14 x10^3/uL (1.4-6.9); Basophil (Absolute #) 0.03 x10^3/uL (0-0.4); Eosinophil (Absolute #) 0.08 x10^3/uL (0-0.5); Hematocrit 44.4 % (42-50); Hemoglobin 16.2 g/dL (12.5-18.0); Lymphocyte (Absolute #) 0.98 x10^3/uL (1.0-4.6); Lymphocytes % 12.2 % (24.0-44.0); Mean Cell Volume 100.5 fL (78-100); Mean Corpuscular Hemoglobin 36.7 pg (26-32); Mean Corpuscular Hgb Concent. 36.5 g/dL (32-36); Mean Platelet Volume 9.7 fL (7.5-11.0); Monocyte (Absolute #) 0.75 x10^3/uL (0.0-1.3); Monocytes % 9.4 % (0.0-12.0); Neutrophil % 76.6 % (36.0-66.0); Platelet Count 129 x10^3/uL (150-450); Red Blood Count 4.42 x10^6/uL (4.1-5.6); Red Cell Distribution Width 12.4 % (11.5-14.0)
[2022-03-13 12:35] LABS: ALBUMIN 4.5 g/dL (3.5-5.0); ALKALINE PHOSPHATASE 81 U/L (38-126); ANION GAP 15.3 MEQ/L (5-15); BLOOD UREA NITROGEN 6 mg/dL (9-20); CHLORIDE 95 mmol/L (98-107); Calcium 9.1 mg/dL (8.4-10.2); Carbon Dioxide 27 mmol/L (22-30); EST GLOMERULAR FILTRATION RATE > 60.0 ML/MIN; Glucose 117 mg/dL (74-106); Potassium 4.5 mmol/L (3.5-5.1); SGOT/AST 109 U/L (17-59); SGPT/ALT 110 U/L (0-50); SODIUM 133 mmol/L (137-145); Total Protein 7.9 g/dL (6.3-8.2)
--- NOTE | 2022-03-13 12:38 | XRAY ---
Indication: Chest pain 1 month. Comparison: October 14, 2017. Portable apical lordotic chest is now clear. Heart not enlarged. Bony thorax intact with new finding old left clavicle fracture with intact fixation plate/screws and partially visualized lower cervical fusion hardware. Impression: Nonacute chest.
[2022-03-13 12:46] LABS: Group A Strep NOT DETECTED (NEGATIVE)
[2022-03-13] MEDS ORDERED: Hydromorphone 1 mg/ml Injection IV ONE (12:54)
[2022-03-13] MEDS ORDERED: Hydromorphone 1 mg/ml Injection ONE (12:55)
[2022-03-13 12:56] LABS: INFLUENZA A NEGATIVE (NEGATIVE); INFLUENZA B NEGATIVE (NEGATIVE); RESPIRATORY SYNCTIAL VIRUS NEGATIVE (Negative); SARS-CoV-2 Xpert Express NEGATIVE (NEGATIVE)
--- NOTE | 2022-03-13 13:00 | XRAY ---
Indication: Neck pain swelling 1 month. Multiple contiguous axial images obtained through the neck without contrast. Sagittal and coronal reformatted images obtained. Comparison: None. There is CTA neck October 14, 2017. Right oropharynx and right parapharyngeal space demonstrates new irregular shaped soft tissue mass measuring at least 2.6 x 2.5 in greatest axial dimension. Mass extends inferiorly to the level just above the vocal cords and is concerning for malignancy. Subcentimeter focus of central hypoattenuation favors fluid component/tissue necrosis. There are numerous prominent cervical lymph nodes, right greater than left. Largest is level I on the right measuring 1.6 x 1.1 cm just superior to the carotid bulb. I believe there are now 2 new right submandibular duct calculi, largest 3 mm. Subsequent asymmetrically enlarged right submandibular gland due to obstruction. Remaining left submandibular and parotid glands are unremarkable. Major arteries and veins are normal in course and caliber with new mild bilateral carotid bulb calcifications. Thyroid gland appears homogeneous. Osseous structures intact with interval C6-C7 fusion surgery with intact anterior plate/screws/intervertebral spacer. No acute fracture or suspicious bony lesions. Base of brain and lung apices unremarkable. Impression: 1. New large right oropharynx/parapharyngeal space soft tissue mass as detailed worrisome for malignancy. 2. Cervical lymphadenopathy probably metastatic. 3. Suspect 2 right submandible duct calculi producing obstruction with subsequent enlarged right semitubular gland. 4. Status post C6-C7 anterior fusion.
[2022-03-13 14:18] LABS: Mucus SLIGHT /HPF (NEGATIVE); RBC 0-2 /HPF (0-2)
[2022-03-13 14:25] LABS: Appearance CLEAR (CLEAR); Bilirubin NEGATIVE (NEGATIVE); Glucose NEGATIVE (NEGATIVE); Ketones SMALL-15 (NEGATIVE)
[2022-03-13 14:26] LABS: Nitrite NEGATIVE (NEGATIVE); Protein,Urine Dip NEGATIVE (Negative); RBC NEGATIVE Ery/ul (0-5); Urine Cultured Indicated? NO; Urobilinogen 1 mg/dL (0-1)
[2022-03-13 14:35] VITALS: BP 126/85; PULSE 100
[2022-03-13 14:40] VITALS: O2SAT 99
[2022-03-13 14:50] LABS: Dipstick done @ ? MAIN LAB
== END 2022-03-13 14:37 | disposition left against medical advice (07) ==
LOC: ED 11:35
DX: R93.89 Abnormal findings on diagnostic imaging of other specified body structures (principal); J02.9 Acute pharyngitis, unspecified; R13.10 Dysphagia, unspecified; R51.9 Headache, unspecified; R11.2 Nausea with vomiting, unspecified; R68.83 Chills (without fever); R07.9 Chest pain, unspecified; Z72.0 Tobacco use; Z28.310 Unvaccinated for COVID-19
CPT/HCPCS: 0241U; 36000; 36415; 70490; 71045; 80053; 81015; 83605; 84484; 85025; 86308; 87040; 87651; 93005; 96374; 96375; 99284; J1170; J2930; J3010

== ENCOUNTER 2022-03-14 04:04 | Emergency (ER) | payer OTHER ==
[2022-03-14 04:21] VITALS: O2SAT 98
[2022-03-14] MEDS ORDERED: Sodium Chloride 0.9% 1000 ML 1,000 ML IV STA (04:22)
[2022-03-14] MEDS ORDERED: THIAMINE 200 MG/2 ML IV ONE (04:23)
[2022-03-14] MEDS ORDERED: Ativan 2 MG/1 ML VIAL IV ONE (04:24)
[2022-03-14] MEDS ORDERED: Ativan 2 MG/1 ML VIAL ONE (04:28)
[2022-03-14] MEDS ORDERED: Sodium Chloride 0.9% 1000 ML 1,000 ML ONE (04:28)
[2022-03-14] MEDS ORDERED: THIAMINE 200 MG/2 ML ONE (04:28)
[2022-03-14 04:39] LABS: Absolute Neutrophil Ct (ANC) 6.89 x10^3/uL (1.4-6.9); Basophil (Absolute #) 0.01 x10^3/uL (0-0.4); Eosinophil % 0.2 % (0.00-5.0); Eosinophil (Absolute #) 0.02 x10^3/uL (0-0.5); Hematocrit 41.2 % (42-50); Hemoglobin 14.9 g/dL (12.5-18.0); Lymphocyte (Absolute #) 1.39 x10^3/uL (1.0-4.6); Lymphocytes % 14.8 % (24.0-44.0); Mean Cell Volume 102.7 fL (78-100); Mean Corpuscular Hemoglobin 37.2 pg (26-32); Mean Corpuscular Hgb Concent. 36.2 g/dL (32-36); Mean Platelet Volume 9.3 fL (7.5-11.0); Monocytes % 10.7 % (0.0-12.0); Neutrophil % 73.5 % (36.0-66.0); Platelet Count 119 x10^3/uL (150-450); Red Blood Count 4.01 x10^6/uL (4.1-5.6); Red Cell Distribution Width 12.5 % (11.5-14.0); White Blood Count 9.4 x10^3/uL (4.0-10.5)
[2022-03-14 05:03] LABS: ALBUMIN 4.3 g/dL (3.5-5.0); ALKALINE PHOSPHATASE 77 U/L (38-126); ANION GAP 16.4 MEQ/L (5-15); BLOOD UREA NITROGEN 6 mg/dL (9-20); CHLORIDE 99 mmol/L (98-107); Calcium 9.4 mg/dL (8.4-10.2); Carbon Dioxide 23 mmol/L (22-30); Creatinine 1 0.64 mg/dL (0.66-1.25); EST GLOMERULAR FILTRATION RATE > 60.0 ML/MIN; ETHYL ALCOHOL < 10 mg/dL (0-10); Glucose 104 mg/dL (74-106); Potassium 4.7 mmol/L (3.5-5.1); SGOT/AST 112 U/L (17-59); SGPT/ALT 106 U/L (0-50); SODIUM 133 mmol/L (137-145); Total Protein 7.8 g/dL (6.3-8.2)
[2022-03-14 05:14] VITALS: BP 137/85; PULSE 114
[2022-03-14] MEDS ORDERED: solu-MEDROL 125 MG, Sterile H2O 10 ml 2 ML IV ONE ×2 (05:16)
[2022-03-14] MEDS ORDERED: solu-MEDROL ONE (05:24)
[2022-03-14] MEDS ORDERED: Sterile H2O 10 ml IJ ONE (05:24)
--- NOTE | 2022-03-14 05:28 | ERPHSYRPT ---
- History of Present Illness Time Seen by Provider: 03/14/22 05:23 Source: patient Exam Limitations: no limitations Patient Subjective Stated Complaint: pt states that he was in ER this AM and wsa having shortness of breath, pain in his neck and pain in r foot, states he has pain in neck 9/10. states he triesd to drive to [place] to see a specilaist for the lump in his neck. Triage Nursing Assessment: pt is alert and oriented, pt is shaking and anxious. states that he is afraid that the lump in his neck will make him stop breathing. pt is holding right side of neck. Physician History: Patient is a 51-year-old male who was seen yesterday in the ER and discovered a mass in the oral pharyngeal space that extends all the way down to the level of the vocal cords. On CT there is some displacement of the airway to the left. He signed out AMA yesterday because he had "things to do" while we were trying to find a hospital with a bed for possible ENT evaluation. He returns this morning with a complaint of continued pain and difficulty swallowing. Mass present Severity: moderate ENT Location: throat Prearrival Treatment: no prearrival treatment Allergies/Adverse Reactions: No Known Drug Allergies Allergy (Verified 03/14/22 04:20) Home Medications: No Reportable Medications [No Reported Medications] 08/11/20 [History] Hx Tetanus, Diphtheria Vaccination/Date Given: No Hx Influenza Vaccination/Date Given: No Hx Pneumococcal Vaccination/Date Given: No Travel Risk - International Travel Have you traveled outside of the country in past 3 weeks: No - Coronavirus Screening Are you exhibiting any of the following symptoms?: No Close contact with a COVID-19 positive Pt in past 14-21 Days: No - Vaccine Status Have you recieved a Covid-19 vaccination: No - Review of Systems Constitutional: No Fever, No Chills Eyes: No Symptoms Ears, Nose, & Throat: No Symptoms, Throat Pain Respiratory: No Cough, No Dyspnea Cardiac: No Chest Pain, No Edema, No Syncope Abdominal/Gastrointestinal: No Abdominal Pain, No Nausea, No Vomiting, No Diarrhea Genitourinary Symptoms: No Dysuria Musculoskeletal: No Back Pain, No Neck Pain Skin: No Rash Neurological: No Dizziness, No Focal Weakness, No Sensory Changes Psychological: No Symptoms Endocrine: No Symptoms All Other Systems: Reviewed and Negative - Past Medical History Pertinent Past Medical History: No Neurological History: No Pertinent History ENT History: No Pertinent History Cardiac History: No Pertinent History Respiratory History: No Pertinent History Endocrine Medical History: No Pertinent History Musculoskeletal History: No Pertinent History GI Medical History: No Pertinent History History: No Pertinent History Psycho-Social History: No Pertinent History Male Reproductive Disorders: No Pertinent History - Past Surgical History Past Surgical History: Yes Neuro Surgical History: No Pertinent History Cardiac: No Pertinent History Respiratory: No Pertinent History Gastrointestinal: No Pertinent History Genitourinary: No Pertinent History Musculoskeletal: Orthopedic Surgery Male Surgical History: No Pertinent History Other Surgical History: knee , arm back - Social History Smoking Status: Current every day smoker How long have you smoked: 20 years Exposure to second hand smoke: Yes Drug Use: none Patient Lives Alone: No Significant Family History: no pertinent family hx - Nursing Vital Signs Nursing Vital Signs: Initial Vital Signs Temperature 99.1 F 03/14/22 04:08 Pulse Rate 111 H 03/14/22 04:08 Respiratory Rate 18 03/14/22 04:08 O2 Sat by Pulse Oximetry 96 03/14/22 04:08 Pain Scale Pain Intensity 10 - Physical Exam General Appearance: no apparent distress, alert Eye Exam: bilateral eye: PERRL, EOMI Nasal Exam: normal inspection Throat Exam: moist mucus membranes, pharynx swelling (There is a soft tissue mass easily visible orally on the right side near the tonsillar bed.), No tonsillar exudate Neck Exam: supple Cardiovascular/Respiratory Exam: normal breath sounds, regular rate/rhythm Abdominal Exam: non-tender, soft Neurologic Exam: alert, oriented x 3, sensation nml, No motor deficits Skin Exam: normal color, warm, dry SpO2: 98 - Course Nursing assessment & vital signs reviewed: Yes Ordered Tests: Active Orders 24 hr Category Date Time Status IV Insertion STAT Care 03/14/22 04:36 Active CBC W DIFF Stat Lab 03/14/22 04:35 Completed CMP Stat Lab 03/14/22 04:35 Completed ETHYL ALCOHOL Stat Lab 03/14/22 04:35 Completed Urine Triage Profile Stat Lab 03/14/22 04:26 Ordered Medication Summary Generic Name Dose Route Start Last Admin Trade Name Freq PRN Reason Stop Dose Admin Methylprednisolone Sodium 0 mg 03/14/22 05:16 Succinate 125 mg/ Sterile IV 03/14/22 05:17 Water 2 ml STAT ONE Discontinued Medications Generic Name Dose Route Start Last Admin Trade Name Ana PRN Reason Stop Dose Admin Sodium Chloride 1,000 mls @ 999 mls/hr 03/14/22 04:22 03/14/22 04:29 Sodium Chloride 0.9% 1000 Ml IV 03/14/22 05:22 999 mls/hr .Q1H1M STA Administration Sodium Chloride Confirm 03/14/22 04:28 Sodium Chloride 0.9% 1000 Ml Administered 03/14/22 04:29 Dose 1,000 mls @ ud .ROUTE .STK-MED ONE Lorazepam 1 mg 03/14/22 04:24 03/14/22 04:30 Lorazepam 2 Mg/1 Ml 2 Mg Vial IV 03/14/22 04:25 1 mg STAT ONE Administration Lorazepam Confirm 03/14/22 04:28 Lorazepam 2 Mg/1 Ml 2 Mg Vial Administered 03/14/22 04:29 Dose 2 mg .ROUTE .STK-MED ONE Thiamine HCl 100 mg 03/14/22 04:23 03/14/22 04:29 Thiamine Hcl 200 Mg/2 Ml Vial IV 03/14/22 04:24 100 mg STAT ONE Administration Thiamine HCl Confirm 03/14/22 04:28 Thiamine Hcl 200 Mg/2 Ml Vial Administered 03/14/22 04:29 Dose 200 mg .ROUTE .STK-MED ONE Lab/Rad Data: Laboratory Result Diagrams 03/14/22 04:35 03/14/22 04:35 Laboratory Results 03/14/22 03/14/22 Range/Units 04:35 04:35 WBC 9.4 (4.0-10.5) x10^3/uL RBC 4.01 L (4.1-5.6) x10^6/uL Hgb 14.9 (12.5-18.0) g/dL Hct 41.2 L (42-50) % MCV 102.7 H (78-100) fL MCH 37.2 H (26-32) pg MCHC 36.2 H (32-36) g/dL RDW 12.5 (11.5-14.0) % Plt Count 119 L (150-450) x10^3/uL MPV 9.3 (7.5-11.0) fL Gran % 73.5 H (36.0-66.0) % Immature Gran % (Auto) 0.7 H (0.00-0.4) % Nucleat RBC Rel Count 0.0 (0.00-0.1) % Eos # (Auto) 0.02 (0-0.5) x10^3/uL Immature Gran # (Auto) 0.07 H (0.00-0.03) x10^3u/L Absolute Lymphs (auto) 1.39 (1.0-4.6) x10^3/uL Absolute Monos (auto) 1.00 (0.0-1.3) x10^3/uL Absolute Nucleated RBC 0.00 (0.00-0.01) x10^3u/L Lymphocytes % 14.8 L (24.0-44.0) % Monocytes % 10.7 (0.0-12.0) % Eosinophils % 0.2 (0.00-5.0) % Basophils % 0.1 (0.0-0.4) % Absolute Granulocytes 6.89 (1.4-6.9) x10^3/uL Basophils # 0.01 (0-0.4) x10^3/uL Sodium 133 L (137-145) mmol/L Potassium 4.7 (3.5-5.1) mmol/L Chloride 99 (98-107) mmol/L Carbon Dioxide 23 (22-30) mmol/L Anion Gap 16.4 H (5-15) MEQ/L BUN 6 L (9-20) mg/dL Creatinine 0.64 L (0.66-1.25) mg/dL Estimated GFR > 60.0 ML/MIN Glucose 104 (74-106) mg/dL Calcium 9.4 (8.4-10.2) mg/dL Total Bilirubin 0.90 (0.2-1.3) mg/dL AST 112 H (17-59) U/L ALT 106 H (0-50) U/L Alkaline Phosphatase 77 (38-126) U/L Serum Total Protein 7.8 (6.3-8.2) g/dL Albumin 4.3 (3.5-5.0) g/dL Ethyl Alcohol < 10 (0-10) mg/dL - Progress Progress: unchanged - Departure Departure Disposition: AMA Clinical Impression: Pharyngeal mass Condition: Fair Critical Care Time: No Referrals: DOCTOR,NO FAMILY [Primary Care Provider] - Follow up/PCP as directed
[2022-03-14] MEDS ORDERED: Hydromorphone 1 mg/ml Injection IV ONE (05:30)
[2022-03-14] MEDS ORDERED: Hydromorphone 1 mg/ml Injection ONE (05:31)
== END 2022-03-14 05:41 | disposition left against medical advice (07) ==
LOC: ED 04:04
DX: R93.89 Abnormal findings on diagnostic imaging of other specified body structures (principal); J39.8 Other specified diseases of upper respiratory tract; R13.10 Dysphagia, unspecified; Z72.0 Tobacco use; Z28.310 Unvaccinated for COVID-19
CPT/HCPCS: 36000; 36415; 80053; 85025; 96374; 96375; 99284; G0480; 80307; J1170; J2060; J2930

== ENCOUNTER 2023-04-02 00:09 | Emergency (ER) | payer OTHER ==
[2023-04-02] MEDS ORDERED: Geodon 20 MG INJ IM ONE ×2 (01:16→01:17)
[2023-04-02] MEDS ORDERED: Sterile H2O 10 ml IJ ONE (01:17)
--- NOTE | 2023-04-02 02:22 | ERPHSYRPT ---
- History of Present Illness Source: patient, EMS, police Exam Limitations: clinical condition Patient Subjective Stated Complaint: per family and law enforcement with pt, pt ahs been drinking heavily for the last week. today has been having hallucinations and has been very suspicious and thinks he has been shot. pt states he knows peopel are after him and trying to kill him. Triage Nursing Assessment: pt alert, pt is anxious and paranoid. states someone is out to get him. pt ambulates into room with steady gait noted. respirations nonlabored. skin warm and dry. pt restless in bed. speech fast and rambling. pt cooperative with vitals and ekg but refusing iv and blood work at this time. Physician History: 52 yo WM w h/o alcohol abuse presents to ER per EMS/police w psychosis. Pt believes that someone shot him and that people are out to get him. He refuses all blood work and to give a urine. Pt also tried to enter his neighbor's house because he thought someone was trying to kill him. Timing/Duration: today Severity of Symptoms-Max: severe Severity of Symptoms-Current: moderate Associated Symptoms: agitated, hostile Allergies/Adverse Reactions: No Known Drug Allergies Allergy (Verified 04/02/23 00:39) Home Medications: No Reportable Medications [No Reported Medications] 08/11/20 [History] Hx Tetanus, Diphtheria Vaccination/Date Given: No Hx Influenza Vaccination/Date Given: No Hx Pneumococcal Vaccination/Date Given: No Travel Risk - International Travel Have you traveled outside of the country in past 3 weeks: No - Coronavirus Screening Are you exhibiting any of the following symptoms?: No Close contact with a COVID-19 positive Pt in past 14-21 Days: No - Vaccine Status Have you recieved a Covid-19 vaccination: Yes Park Warden: Unknown - Vaccination Dates Dates if Unknown: unknown - Past Medical History Pertinent Past Medical History: No Neurological History: Other ENT History: No Pertinent History Cardiac History: Hypertension Respiratory History: Other Endocrine Medical History: No Pertinent History Musculoskeletal History: No Pertinent History GI Medical History: No Pertinent History History: No Pertinent History Psycho-Social History: No Pertinent History Male Reproductive Disorders: No Pertinent History Other Medical History: COVID 2020 - Past Surgical History Past Surgical History: Yes Neuro Surgical History: No Pertinent History Cardiac: No Pertinent History Respiratory: No Pertinent History Gastrointestinal: No Pertinent History Genitourinary: No Pertinent History Musculoskeletal: Orthopedic Surgery Male Surgical History: No Pertinent History Other Surgical History: knee , arm, back - Social History Smoking Status: Current every day smoker How long have you smoked: 34 yrs Exposure to second hand smoke: No Drug Use: none Patient Lives Alone: No Significant Family History: no pertinent family hx - Review of Systems All Other Systems: Unable due to condition - Nursing Vital Signs Nursing Vital Signs: Initial Vital Signs Temperature 98.2 F 04/02/23 00:12 Pulse Rate 137 H 04/02/23 00:12 Respiratory Rate 20 04/02/23 00:12 Blood Pressure 131/77 04/02/23 00:12 O2 Sat by Pulse Oximetry 90 L 04/02/23 00:12 Pain Scale Pain Intensity 0 Tachy/Borderline sats - Physical Exam General Appearance: no apparent distress (Very anxious) Eyes, Ears, Nose, Throat Exam: normal ENT inspection, TMs normal, pharynx normal, moist mucous membranes Neck Exam: normal inspection, non-tender, supple, full range of motion, No Brudzinski, No Kernig's, No meningismus Respiratory Exam: normal breath sounds, lungs clear, airway intact Cardiovascular Exam: tachycardia, capillary refill <2 sec, No murmur Gastrointestinal/Abdominal Exam: soft, normal bowel sounds Extremities Exam: normal inspection, normal range of motion Peripheral Pulses: carotid (R): 2+, carotid (L): 2+ Current Suicidality: denies suicide plan Neurological Exam: alert, oriented x 3, agitated Behavior/Eye Contact/Speech: agitated, intoxicated appearance Thoughts/Hallucinations: visual hallucinations Skin Exam: normal color, warm, dry SpO2 Interpretation: borderline oxygenation SpO2: 90 O2 Delivery: Room Air - Course Nursing assessment & vital signs reviewed: Yes EKG Interpreted by Me: RATE (Sinus tach/Normal QT-QTc/Nonspecific ST-Twave changes) Ordered Tests: Active Orders 24 hr Category Date Time Status ACETAMINOPHEN Stat Lab 04/02/23 02:19 Completed CBC W DIFF Stat Lab 04/02/23 02:19 Completed CMP Stat Lab 04/02/23 02:19 Completed ETHYL ALCOHOL Stat Lab 04/02/23 02:19 Completed SALICYLATE Stat Lab 04/02/23 02:19 Completed UA W/RFX UR CULTURE Stat Lab 04/02/23 03:05 Completed Urine Triage Profile Stat Lab 04/02/23 03:05 Completed Medication Summary Discontinued Medications Generic Name Dose Route Start Last Admin Trade Name Ana PRN Reason Stop Dose Admin Sodium Chloride 1,000 mls @ 999 mls/hr 04/02/23 02:51 04/02/23 03:00 Sodium Chloride 0.9% 1000 Ml IV 04/02/23 03:51 999 mls/hr .Q1H1M STA Administration Sodium Chloride Confirm 04/02/23 02:59 Sodium Chloride 0.9% 1000 Ml Administered 04/02/23 03:00 Dose 1,000 mls @ ud .ROUTE .STK-MED ONE Sterile Water Confirm 04/02/23 01:17 Water For Injection,Sterile 10 Ml Vial Administered 04/02/23 01:18 Dose 10 ml IJ .STK-MED ONE Ziprasidone 20 mg 04/02/23 01:16 04/02/23 01:23 Ziprasidone Mesylate 20 Mg/Vial Vial IM 04/02/23 01:17 20 mg STAT ONE Administration Ziprasidone Confirm 04/02/23 01:17 Ziprasidone Mesylate 20 Mg/Vial Vial Administered 04/02/23 01:18 Dose 20 mg IM .STK-MED ONE Lab/Rad Data: Laboratory Result Diagrams 04/02/23 02:19 04/02/23 02:19 Laboratory Results 04/02/23 04/02/23 04/02/23 Range/Units 03:25 03:05 03:05 WBC (4.0-10.5) x10^3/uL RBC (4.1-5.6) x10^6/uL Hgb (12.5-18.0) g/dL Hct (42-50) % MCV (78-100) fL MCH (26-32) pg MCHC (32-36) g/dL RDW (11.5-14.0) % Plt Count (150-450) x10^3/uL MPV (7.5-11.0) fL Gran % (36.0-66.0) % Immature Gran % (Auto) (0.00-0.4) % Nucleat RBC Rel Count (0.00-0.1) % Eos # (Auto) (0-0.5) x10^3/uL Immature Gran # (Auto) (0.00-0.03) x10^3u/L Absolute Lymphs (auto) (1.0-4.6) x10^3/uL Absolute Monos (auto) (0.0-1.3) x10^3/uL Absolute Nucleated RBC (0.00-0.01) x10^3u/L Lymphocytes % (24.0-44.0) % Monocytes % (0.0-12.0) % Eosinophils % (0.00-5.0) % Basophils % (0.0-0.4) % Absolute Granulocytes (1.4-6.9) x10^3/uL Basophils # (0-0.4) x10^3/uL Sodium (137-145) mmol/L Potassium (3.5-5.1) mmol/L Chloride (98-107) mmol/L Carbon Dioxide (22-30) mmol/L Anion Gap (5-15) MEQ/L BUN (9-20) mg/dL Creatinine (0.66-1.25) mg/dL Estimated GFR ML/MIN Glucose (74-106) mg/dL Calcium (8.4-10.2) mg/dL Total Bilirubin (0.2-1.3) mg/dL AST (17-59) U/L ALT (0-50) U/L Alkaline Phosphatase (38-126) U/L Ammonia < 9 L (9-30) umol/L Serum Total Protein (6.3-8.2) g/dL Albumin (3.5-5.0) g/dL Urine Color Dark Yellow (Yellow) Urine Appearance Clear (Clear) Urine pH 7.0 (4.6-8.0) Ur Specific [place] 1.015 (1.005-1.030) Urine Protein 30 (Negative) Urine Glucose (UA) Negative (Negative) mg/dL Urine Ketones Trace A (Negative) Urine Blood Negative (Negative) Urine Nitrite Negative (Negative) Urine Bilirubin Negative (Negative) Urine Urobilinogen 1.0 A (0.2) mg/dL Ur Leukocyte Esterase Trace A (Negative) U Hyaline Cast (Auto) NONE SEEN (0-2) /LPF Urine Microscopic RBC 0-2 (0-5) /HPF Urine Microscopic WBC 0-2 (0-5) /HPF Ur Epithelial Cells None Seen (None Seen) /HPF Urine Bacteria None Seen (None Seen) /HPF Urine Culture Reflexed NO (NO) Salicylates (2-20) mg/dL Urine Opiates Level NEGATIVE (NEGATIVE) Ur Methadone NEGATIVE (NEGATIVE) Acetaminophen (10-30) ug/ml Urine Barbiturates NEGATIVE (NEGATIVE) Ur Phencyclidine (PCP) NEGATIVE (NEGATIVE) Urine Amphetamine POSITIVE (NEGATIVE) U Benzodiazepine Level NEGATIVE (NEGATIVE) Urine Cocaine NEGATIVE (NEGATIVE) Urine Marijuana (THC) NEGATIVE (NEGATIVE) Ethyl Alcohol (0-10) mg/dL 04/02/23 04/02/23 Range/Units 02:19 02:19 WBC 10.3 (4.0-10.5) x10^3/uL RBC 4.58 (4.1-5.6) x10^6/uL Hgb 15.8 (12.5-18.0) g/dL Hct 44.6 (42-50) % MCV 97.4 (78-100) fL MCH 34.5 H (26-32) pg MCHC 35.4 (32-36) g/dL RDW 12.3 (11.5-14.0) % Plt Count 123 L (150-450) x10^3/uL MPV 9.2 (7.5-11.0) fL Gran % 82.9 H (36.0-66.0) % Immature Gran % (Auto) 1.0 H (0.00-0.4) % Nucleat RBC Rel Count 0.0 (0.00-0.1) % Eos # (Auto) 0.01 (0-0.5) x10^3/uL Immature Gran # (Auto) 0.10 H (0.00-0.03) x10^3u/L Absolute Lymphs (auto) 0.97 L (1.0-4.6) x10^3/uL Absolute Monos (auto) 0.66 (0.0-1.3) x10^3/uL Absolute Nucleated RBC 0.00 (0.00-0.01) x10^3u/L Lymphocytes % 9.4 L (24.0-44.0) % Monocytes % 6.4 (0.0-12.0) % Eosinophils % 0.1 (0.00-5.0) % Basophils % 0.2 (0.0-0.4) % Absolute Granulocytes 8.54 H (1.4-6.9) x10^3/uL Basophils # 0.02 (0-0.4) x10^3/uL Sodium 130 L (137-145) mmol/L Potassium 3.7 (3.5-5.1) mmol/L Chloride 91 L (98-107) mmol/L Carbon Dioxide 26 (22-30) mmol/L Anion Gap 17.1 H (5-15) MEQ/L BUN 23 H (9-20) mg/dL Creatinine 1.45 H (0.66-1.25) mg/dL Estimated GFR 54.8 ML/MIN Glucose 113 H (74-106) mg/dL Calcium 10.1 (8.4-10.2) mg/dL Total Bilirubin 1.70 H (0.2-1.3) mg/dL AST 288 H (17-59) U/L ALT 330 H (0-50) U/L Alkaline Phosphatase 85 (38-126) U/L Ammonia (9-30) umol/L Serum Total Protein 8.8 H (6.3-8.2) g/dL Albumin 4.8 (3.5-5.0) g/dL Urine Color (Yellow) Urine Appearance (Clear) Urine pH (4.6-8.0) Ur Specific [place] (1.005-1.030) Urine Protein (Negative) Urine Glucose (UA) (Negative) mg/dL Urine Ketones (Negative) Urine Blood (Negative) Urine Nitrite (Negative) Urine Bilirubin (Negative) Urine Urobilinogen (0.2) mg/dL Ur Leukocyte Esterase (Negative) U Hyaline Cast (Auto) (0-2) /LPF Urine Microscopic RBC (0-5) /HPF Urine Microscopic WBC (0-5) /HPF Ur Epithelial Cells (None Seen) /HPF Urine Bacteria (None Seen) /HPF Urine Culture Reflexed (NO) Salicylates < 1.0 L (2-20) mg/dL Urine Opiates Level (NEGATIVE) Ur Methadone (NEGATIVE) Acetaminophen < 10 L (10-30) ug/ml Urine Barbiturates (NEGATIVE) Ur Phencyclidine (PCP) (NEGATIVE) Urine Amphetamine (NEGATIVE) U Benzodiazepine Level (NEGATIVE) Urine Cocaine (NEGATIVE) Urine Marijuana (THC) (NEGATIVE) Ethyl Alcohol < 10 (0-10) mg/dL - Progress Progress Note: 04/02/23 03:50 Nursing note and vital signs reviewed No food or housing insecurities noted History through EMS/Police Pt paranoid and refused labs/urine ED order signed due to paranoid behavior w the potential of being a danger to himself or others 20mg IM Geodon w adequate response/Labs and UA obtained after Geodon treatment 1L NS bolus 04/02/23 05:06 Pt accepted at [facility] Counseled pt/family regarding: lab results, diagnosis Medical Desision Making - Independent Historian Additional History obtained from: EMS - Social Determinants of Health Pt's dx & treatment plan are significantly limited by SDOH: Unemployed - Risk of complications The pt has a high risk of morbidity or mortality based on: Drug therapy requiring intensive monitoring for toxicity - Departure Clinical Impression: Methamphetamine-induced mental disorder Referrals: LISBET JOHNSON NP [Primary Care Provider] - Follow up/PCP as directed
[2023-04-02 02:25] LABS: Absolute Neutrophil Ct (ANC) 8.54 x10^3/uL (1.4-6.9); BASOPHIL % 0.2 % (0.0-0.4); Basophil (Absolute #) 0.02 x10^3/uL (0-0.4); Eosinophil % 0.1 % (0.00-5.0); Eosinophil (Absolute #) 0.01 x10^3/uL (0-0.5); Hematocrit 44.6 % (42-50); Hemoglobin 15.8 g/dL (12.5-18.0); Lymphocyte (Absolute #) 0.97 x10^3/uL (1.0-4.6); Lymphocytes % 9.4 % (24.0-44.0); Mean Cell Volume 97.4 fL (78-100); Mean Corpuscular Hemoglobin 34.5 pg (26-32); Mean Corpuscular Hgb Concent. 35.4 g/dL (32-36); Mean Platelet Volume 9.2 fL (7.5-11.0); Monocyte (Absolute #) 0.66 x10^3/uL (0.0-1.3); Monocytes % 6.4 % (0.0-12.0); Neutrophil % 82.9 % (36.0-66.0); Platelet Count 123 x10^3/uL (150-450); Red Blood Count 4.58 x10^6/uL (4.1-5.6); Red Cell Distribution Width 12.3 % (11.5-14.0); White Blood Count 10.3 x10^3/uL (4.0-10.5)
[2023-04-02 02:39] LABS: ACETAMINOPHEN < 10 ug/ml (10-30); ALBUMIN 4.8 g/dL (3.5-5.0); ALKALINE PHOSPHATASE 85 U/L (38-126); ANION GAP 17.1 MEQ/L (5-15); BLOOD UREA NITROGEN 23 mg/dL (9-20); CHLORIDE 91 mmol/L (98-107); Calcium 10.1 mg/dL (8.4-10.2); Carbon Dioxide 26 mmol/L (22-30); Creatinine 1 1.45 mg/dL (0.66-1.25); EST GLOMERULAR FILTRATION RATE 54.8 ML/MIN; ETHYL ALCOHOL < 10 mg/dL (0-10); Glucose 113 mg/dL (74-106); Potassium 3.7 mmol/L (3.5-5.1); SALICYLATE < 1.0 mg/dL (2-20); SGOT/AST 288 U/L (17-59); SGPT/ALT 330 U/L (0-50); SODIUM 130 mmol/L (137-145); Total Protein 8.8 g/dL (6.3-8.2)
[2023-04-02] MEDS ORDERED: Sodium Chloride 0.9% 1000 ML 1,000 ML IV STA (02:51)
[2023-04-02] MEDS ORDERED: Sodium Chloride 0.9% 1000 ML 1,000 ML ONE (02:59)
[2023-04-02 03:18] LABS: Appearance Clear (Clear); Bacteria None Seen /HPF (None Seen); Bilirubin Negative (Negative); Blood Negative (Negative); Epithelial Cells None Seen /HPF (None Seen); Glucose, Urine Negative (Negative); Hyaline Casts NONE SEEN /LPF (0-2); Ketones Trace (Negative); Leukocyte Esterase Trace (Negative); Nitrite Negative (Negative); Protein,Urine Dip 30 (Negative); RBC 0-2 /HPF (0-5); Specific Gravity 1.015 (1.005-1.030); WBC 0-2 /HPF (0-5)
[2023-04-02 03:29] LABS: Barbiturate,Urine NEGATIVE (NEGATIVE); Benzodiazepine,Urine NEGATIVE (NEGATIVE); Cocaine,Urine NEGATIVE (NEGATIVE); Methadone,Urine NEGATIVE (NEGATIVE); Opiate,Urine NEGATIVE (NEGATIVE); PCP,Urine NEGATIVE (NEGATIVE); THC,Urine NEGATIVE (NEGATIVE)
[2023-04-02 03:44] LABS: Amphetamine,Urine POSITIVE (NEGATIVE)
[2023-04-02 06:19] LABS: ADD URINE CULTURE? YES (NO)
[2023-04-02 10:24] VITALS: BP 119/71; PULSE 100; O2SAT 91
== END 2023-04-02 11:35 ==
LOC: ED 00:09
DX: F15.950 Other stimulant use, unspecified with stimulant-induced psychotic disorder with delusions (principal); Z86.16 Personal history of COVID-19; Z72.0 Tobacco use; Z56.0 Unemployment, unspecified
CPT/HCPCS: 36415; 80053; 80143; 80179; 80307; 81001; 82077; 82140; 85025; 87086; 96372; 99285; J3486

== ENCOUNTER 2024-04-02 12:42 | Emergency (ER) | payer OTHER | END 2024-04-02 13:25 | disposition left against medical advice (07) | LOC: ED 12:42 | DX: Z53.21 Procedure and treatment not carried out due to patient leaving prior to being seen by health care provider (principal) ==